=== PATIENT | male | born 1965 ===

== ENCOUNTER 2023-01-10 12:43 | Emergency (ER) | payer SELFPAY ==
[2023-01-10 12:48] VITALS: BP 110/79; PULSE 94; RESP 16; TEMP 35.6; O2SAT 98; BMI 28.3
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
== END 2023-01-10 15:25 | disposition home or self-care (01) ==
PROVIDERS: Emergency Provider Emergency Medicine Emergency Medical Services
DX: S46.912A Strain of unspecified muscle, fascia and tendon at shoulder and upper arm level, left arm, initial encounter (principal); V49.9XXA Car occupant (driver) (passenger) injured in unspecified traffic accident, initial encounter
CPT/HCPCS: 99283; 99284